=== PATIENT | female | born 1985 | race Asian ===

== ENCOUNTER 2020-12-26 20:45 | Emergency (ER) | payer SELFPAY ==
[~2020-12-26] VITALS: Ht 149.9 cm; Wt 53.3 kg
[2020-12-26 20:47] VITALS: BP 188/100
== END 2020-12-27 01:15 | disposition left against medical advice (07) ==
LOC: M ED 20:45
DX: Z53.21 Procedure and treatment not carried out due to patient leaving prior to being seen by health care provider (principal)

== ENCOUNTER → 2022-02-06 | Outpatient (CLI) | payer OTHER ==
[2022-02-06 18:34] LABS: FREE T4 5.11 NG/DL (0.76-1.46); THYROID STIMULATING HORMONE < 0.005 uIU/ML (0.358-3.740)
[2022-02-06 19:32] LABS: THYROID PEROXIDASE ANTIBODY > 1300.0 U/ML (<60.0)
[2022-02-06 19:34] LABS: THYROGLOBULIN ANTIBODY > 500.0 U/ML (<60.0)
[2022-02-06 21:18] LABS: TOTAL T3 470.1 NG/DL (60.0-181.0)
== END ==
LOC: M PLALAB 14:39
PROVIDERS: ATTEND Nurse Practitioner Family
DX: E05.00 Thyrotoxicosis with diffuse goiter without thyrotoxic crisis or storm (principal)

== ENCOUNTER → 2022-02-15 | Outpatient (CLI) | payer OTHER | LOC: M RAD 07:27 | PROVIDERS: ATTEND Nurse Practitioner Family | DX: E05.00 Thyrotoxicosis with diffuse goiter without thyrotoxic crisis or storm (principal) | CPT/HCPCS: 78012; A9516 ==

== ENCOUNTER → 2022-03-16 | Outpatient (CLI) | payer OTHER ==
[2022-03-16 18:18] LABS: FREE T4 1.84 NG/DL (0.76-1.46); THYROID STIMULATING HORMONE < 0.005 uIU/ML (0.358-3.740)
[2022-03-16 19:02] LABS: TOTAL T3 193.6 NG/DL (60.0-181.0)
== END ==
LOC: M LAB 16:49
PROVIDERS: ATTEND Internal Medicine Endocrinology, Diabetes & Metabolism
DX: E05.00 Thyrotoxicosis with diffuse goiter without thyrotoxic crisis or storm (principal)

== ENCOUNTER → 2022-04-09 | Outpatient (CLI) | payer OTHER | LOC: M RAD 14:28 | PROVIDERS: ATTEND Internal Medicine Endocrinology, Diabetes & Metabolism | DX: E05.00 Thyrotoxicosis with diffuse goiter without thyrotoxic crisis or storm (principal) | CPT/HCPCS: 36415; 79005; 84703; A9517 ==

== ENCOUNTER → 2022-04-09 | Outpatient (CLI) | payer OTHER ==
[2022-04-09 12:30] LABS: HCG, SERUM QUALITATIVE NEGATIVE (NEGATIVE)
== END ==
LOC: M LAB 11:06
PROVIDERS: ATTEND Internal Medicine Endocrinology, Diabetes & Metabolism
DX: E05.00 Thyrotoxicosis with diffuse goiter without thyrotoxic crisis or storm (principal)

== ENCOUNTER 2022-05-17 07:09 | Day surgery (SDC) | payer OTHER ==
[~2022-05-17] VITALS: Ht 149.9 cm; Wt 54.1 kg
[~2022-05-17 07:09] MED LIST: HYDR12.55 PO; LOES1TAB7 PO
[2022-05-17] MEDS ORDERED: LR 1,000 ML IV SCH ×2 (07:15→10:40)
[2022-05-17 07:57] LABS: HEMOGLOBIN 13.6 g/dl (12.0-15.5); MEAN CORPUSCULAR HEMOGLOBIN 26.3 pg (27.0-33.0); MEAN CORPUSCULAR HGB CONC 33.2 g/dl (32.0-36.5); MEAN CORPUSCULAR VOLUME 79.3 fl (80.0-96.0); PLATELET COUNT, AUTOMATED 227 10^3/uL (150-450); RED BLOOD COUNT 5.17 10^6/uL (4.00-5.40); WHITE BLOOD COUNT 6.3 10^3/uL (4.0-10.0)
[2022-05-17] MEDS ORDERED: LIDOCAINE 2% 100MG/5ML SDV (FOR ANES.) As Ordered ONE (08:51)
[2022-05-17] MEDS ORDERED: MIDAZOLAM INJ 2MG/2ML VIAL (J2250 PER 1MG) As Ordered ONE (08:51)
[2022-05-17] MEDS ORDERED: fentaNYL 100 MCG/2 ML INJECTION As Ordered ONE (08:51)
[2022-05-17] MEDS ORDERED: KETOROLAC 60MG 2ML VIAL As Ordered ONE (08:51)
[2022-05-17] MEDS ORDERED: propofoL 200 MG/20 ML VIAL As Ordered ONE (08:51)
[2022-05-17] MEDS ORDERED: ONDANSETRON 4MG 2ML VIAL As Ordered ONE (08:51)
[2022-05-17] MEDS ORDERED: SILVER NITRATE APPLICATOR (1 = QTY 10) As Ordered ONE (09:24)
[2022-05-17] MEDS ORDERED: LIDOCAINE 1% MDV 20ML VIAL As Ordered ONE (09:24)
[2022-05-17] MEDS ORDERED: METOCLOPRAMIDE INJ 10MG/2ML VIAL IV PRN (10:40)
[2022-05-17] MEDS ORDERED: fentaNYL 100 MCG/2 ML INJECTION IV PRN (10:40)
[2022-05-17] MEDS ORDERED: ONDANSETRON 4MG 2ML VIAL IV PRN (10:40)
[2022-05-17] MEDS ORDERED: oxyCODONE 5MG TAB PO PRN (10:40)
[2022-05-17 11:06] VITALS: BP 158/83
[2022-05-17] MEDS ORDERED: ACETAMINOPHEN 325 MG TAB PO SCH (16:00)
[2022-05-18] MEDS ORDERED: UNRESOLVED CLARIFICATION ENTRY XX SCH (00:01)
== END 2022-05-17 12:29 | disposition home or self-care (01) ==
LOC: M SDC 07:09
PROVIDERS: ATTEND Obstetrics & Gynecology
DX: N84.0 Polyp of corpus uteri (principal); I10 Essential (primary) hypertension; E05.00 Thyrotoxicosis with diffuse goiter without thyrotoxic crisis or storm; Z79.899 Other long term (current) drug therapy; Z92.3 Personal history of irradiation
CPT/HCPCS: 36415; 58558; 84702; 85027; 88305; J1100; J1885; J2250; J2405; J3010

== ENCOUNTER → 2022-05-29 | Outpatient (CLI) | payer OTHER ==
[2022-05-29 19:24] LABS: THYROID STIMULATING HORMONE 0.141 uIU/ML (0.55-4.78)
[2022-05-29 19:29] LABS: FREE T4 0.51 NG/DL (0.89-1.76)
== END ==
LOC: M LAB 18:19
PROVIDERS: ATTEND Internal Medicine Endocrinology, Diabetes & Metabolism
DX: E05.00 Thyrotoxicosis with diffuse goiter without thyrotoxic crisis or storm (principal)

== ENCOUNTER → 2022-06-14 | Outpatient (CLI) | payer OTHER ==
[2022-06-14 19:19] LABS: FREE T4 0.61 NG/DL (0.89-1.76); THYROID STIMULATING HORMONE 17.175 uIU/ML (0.55-4.78)
== END ==
LOC: M LAB 18:19
PROVIDERS: ATTEND Nurse Practitioner Family
DX: E89.0 Postprocedural hypothyroidism (principal)